=== PATIENT | male | born 1995 | race Caucasian/White ===

== ENCOUNTER 2016-10-25 19:54 | Emergency (ER) | payer OTHER ==
[2016-10-25] MEDS ORDERED: ASPIRIN 81 MG CHEW TAB PO ONE (20:12)
[2016-10-25] MEDS ORDERED: KETOROLAC TROMETHAMINE 30 MG/1ML VIAL IVP ONE (20:34)
[2016-10-25] MEDS ORDERED: LORazepam 2 MG/ML VIAL IVP ONE (20:38)
[2016-10-25 20:40] LABS: BASOPHILS % 0.3 (0.0-1.5); EOSINOPHILS % 0.9 % (0.0-6.8); LYMPHOCYTES # 1.7 # k/uL (0.6-4.0); MEAN CORPUSCULAR HEMOGLOBIN 29.7 pg (28.0-34.0); MONOCYTES # 0.5 # k/uL (0.0-0.9); MONOCYTES % 5.4 % (0.0-11.0); NEUTROPHILS # 7.5 # k/uL (1.4-7.7)
[2016-10-25 20:42] LABS: eGFR (African) > 60; eGFR (Non-African) > 60
--- NOTE | 2016-10-25 21:07 | ED Physician Documentation ---
General Adult - HISTORIAN Historian: patient - HPI Stated Complaint: chest pain Chief Complaint: General Adult Onset: days ago Timing: still present Severity: moderate Further Comments: yes (Pt is a 21 yo male with c/o chest pain which he says had gone on for more than a year. Pain is exacerbated by movement and coughing. Other household members have been ill with resp infections. Pt has hx heart murmur, anxiety. He smokes daily.) - ROS CONST: other (anxiety) EYES/ENT: none CVS/RESP: chest pain (worse with cough and movement), cough GI/: none MS/SKIN/LYMPH: none - PAST HX Past History: other (anxiety, heart murmur) Allergies/Adverse Reactions: Allergies Allergy/AdvReac Type Severity Reaction Status Date / Time No Known Allergies Allergy Verified 10/25/16 20:25 Home Medications: Ambulatory Orders Medication Instructions Recorded NK [NK] 10/28/12 - SOCIAL HX Smoking History: cigarettes - FAMILY HX Family History: No - VITAL SIGNS Vital Signs: Vital Signs Temp Pulse Resp BP Pulse Ox 98.3 F 94 H 15 138/81 99 10/25/16 19:54 10/25/16 20:42 10/25/16 19:54 10/25/16 19:54 10/25/16 20:42 - REVIEWED ASSESSMENTS Nursing Assessment Reviewed: Yes Vitals Reviewed: Yes Progress - Progress Progress: Toradol 30 mg IV Ativan 1 mg IV 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 Recommend contrast-enhanced computed tomography of the chest for further evaluation. Right upper lobe bronchitis or bronchopneumonia. CT chest: Transverse chest sections are obtained after 80 mL intravenous Omnipaque 350 revealing calcified granulomas in each hilum, pretracheal region, subcarinal region, the right lung, and the spleen. 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 Numerous small clustered nodules are identified in the anterior segment right upper lobe, likely inflammatory. Calcified and noncalcified clustered nodules are present in the right middle lobe. Paraesophageal calcified granulomas are noted in the caudal chest. There is no airspace infiltrate or pleural effusion. IMPRESSION: Numerous clustered nodules are present in the anterior segment right upper lobe, both calcified and noncalcified. This is likely related to granulomatous disease given extensive calcified granulomas in each hilum and throughout the mediastinum. A large calcified left hilar granuloma accounts for the radiographic abnormality. Rx Azithromycin 250 mg po qd x 5 days. f/u pcp or hematology. - EKG/XRAY/CT EKG: rhythm (Sinus arrhythmia; normal WV interval; normal axis.) ED Results Lab/Radiology - Lab Results Lab Results: Lab Results 10/25/16 10/25/16 10/25/16 20:24 20:23 20:23 WBC 10.00 K/ul K/ul (4.00-12.00) RBC 5.06 M/ul M/ul (3.90-5.20) Hgb 15.0 g/dL g/dL (12.0-18.0) Hct 42.7 % % (37.0-53.0) MCV 84.3 fl fl (80.0-100.0) MCH 29.7 pg pg (28.0-34.0) MCHC 35.2 g/dL g/dL (30.0-36.0) RDW 12.6 % % (11.3-14.3) Plt Count 240 K/mm3 K/mm3 (130-400) Neut % (Auto) 74.7 % % (39.0-79.0) Lymph % (Auto) 17.2 % % (16.0-50.0) Rowan % (Auto) 5.4 % % (0.0-11.0) Eos % (Auto) 0.9 % % (0.0-6.8) Baso % (Auto) 0.3 (0.0-1.5) Neut # 7.5 # k/uL # k/uL (1.4-7.7) Lymph # 1.7 # k/uL # k/uL (0.6-4.0) Rowan # 0.5 # k/uL # k/uL (0.0-0.9) Eos # 0.1 # k/uL # k/uL (0.0-0.6) Baso # 0.0 # k/uL # k/uL (0.0-0.5) Reactive Lymphs % 1.5 % % (0.0-5.0) Reactive Lymphs # 0.2 # k/uL # k/uL (0.0-0.8) D-Dimer 118 ng/mL ng/mL (6.0-682) Sodium 142 mmol/L mmol/L (136-145) Potassium 4.1 mmol/L mmol/L (3.5-5.0) Chloride 105 mmol/L mmol/L (98-110) Carbon Dioxide 34 mmol/L H mmol/L (20-32) BUN 11 mg/dL mg/dL (10-26) Creatinine 0.9 mg/dL mg/dL (0.4-1.5) Estimated Creat Clear 167 Est GFR ( Amer) > 60 (60 - ) Est GFR (Non-Af Amer) > 60 (60 - ) Glucose 92 mg/dL mg/dL (70-99) Calcium 9.8 mg/dL mg/dL (8.5-10.5) Total Bilirubin 0.9 mg/dL mg/dL (0.2-1.2) AST 14 U/L U/L (0-41) ALT 15 U/L U/L (0-45) Alkaline Phosphatase 63 U/L U/L (46-116) Creatine Kinase 78 U/L U/L (0-225) CK-MB (CK-2) 0.9 ng/mL ng/mL (0.0-5.6) Troponin I Pending Total Protein 7.6 g/dL g/dL (6.0-8.5) Albumin 4.7 g/dL g/dL (3.0-5.5) - Orders Orders: ED Orders Category Date Time Status Continuous EKG monitoring Q30M Care 10/25/16 20:12 Active Continuous Pulse Oximetry Q30M Care 10/25/16 20:[address] Saline Lock/IV NOW Care 10/25/16 20:12 Active CHEST 1 VIEW [RAD] Stat Exams 10/25/16 20:12 Taken CBC/PLATELET/DIFF Routine Lab 10/25/16 20:24 Completed CKMB Stat Lab 10/25/16 20:23 Results CMP Routine Lab 10/25/16 20:23 Completed CREATINE KINASE Routine Lab 10/25/16 20:23 Completed D DIMER Stat Lab 10/25/16 20:23 Results TROPONIN I (cTnI) Stat Lab 10/25/16 20:23 Results Aspirin Med 10/25/16 20:12 Discontinued 324 mg PO NOW ONE Ketorolac Tromethamine [Toradol] Med 10/25/16 20:34 Discontinued 30 mg IVP NOW ONE LORazepam [Ativan] Med 10/25/16 20:38 Discontinued 1 mg IVP NOW ONE Oxygen Daily Oxygen 10/25/16 20:15 Ordered EKG WITH COMPARISON Stat Ther 10/25/16 20:12 Ordered General Adult Physical Exam - PHYSICAL EXAM GENERAL APPEARANCE: mild distress EENT: eye inspection normal, pharynx normal NECK: normal inspection, supple RESPIRATORY: no resp distress, chest non-tender, breath sounds normal CVS: reg rate & rhythm, heart sounds normal ABDOMEN: soft, no organomegaly, normal bowel sounds BACK: normal inspection, no CVA tenderness SKIN: warm/dry, normal color EXTREMITIES: non-tender, normal range of motion NEURO: oriented X3, motor nml, sensation nml Discharge Clincal Impression: bronchitis, Granulomatous disease Referrals: Primary Doctor,No [Primary Care Provider] - 2 Days Home Medications: Ambulatory Orders NK [NK] 10/28/12 Condition: Stable Disposition: 01 HOME, SELF-CARE Decision to Admit: NO Decision Time: 23:05
[2016-10-25] MEDS ORDERED: AZITHROMYCIN 250 MG TABLET PO ONE (22:10)
[2016-10-25 23:30] VITALS: BP 153/91
--- NOTE | 2016-10-26 06:17 | Diagnostic Imaging Report ---
Report Submission Date: Oct 25, 2016 8:47:19 PM CDT Patient ~ Study Name: OLIVA CALIX ~ Date: Oct 25, 2016 8:28:52 PM CDT ~ Modality Type: CR Gender: M ~ Description: CHEST : 96 ~ Institution: [facility] Physician: SAMI BYERS ~ ~ ~ ~ Portable chest HISTORY: ~ Chest pain FINDINGS: ~ The left hilum is enlarged. ~The left lung is clear. ~Subsegmental right upper lobe bronchial wall thickening is observed. ~Heart size is normal. ~No pleural effusions are observed. ~An azygos fissure is present. IMPRESSION: ~ Left hilar enlargement of uncertain etiology. ~Recommend contrast-enhanced computed tomography of the chest for further evaluation. ~ Right upper lobe bronchitis or bronchopneumonia. ~ Electronically signed on Oct 25, 2016 8:47:19 PM CDT by: Jonathan THURSTON
--- NOTE | 2016-10-26 06:17 | Diagnostic Imaging Report ---
Report Submission Date: Oct 25, 2016 10:01:58 PM CDT Patient ~ Study Name: OLIVA CALIX ~ Date: Oct 25, 2016 9:35:23 PM CDT ~ Modality Type: CT\SR Gender: M ~ Description: CT CHEST W/ CONTRAST : 96 ~ Institution: [facility] Physician: SAMI BYERS ~ ~ ~ ~ Computed tomography of the chest with contrast HISTORY: ~ Right upper lobe infiltrate and left hilar enlargement on chest radiograph. ~ Chest pain for 2 weeks. FINDINGS: ~ Transverse chest sections are obtained after 80 mL intravenous Omnipaque 350 revealing calcified granulomas in each hilum, pretracheal region, subcarinal region, the right lung, and the spleen. 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 ~Numerous small clustered nodules are identified in the anterior segment right upper lobe, likely inflammatory. ~Calcified and noncalcified clustered nodules are present in the right middle lobe. ~ Paraesophageal calcified granulomas are noted in the caudal chest. ~There is no airspace infiltrate or pleural effusion. ~ IMPRESSION: ~ Numerous clustered nodules are present in the anterior segment right upper lobe , both calcified and noncalcified. ~This is likely related to granulomatous disease given extensive calcified granulomas in each hilum and throughout the mediastinum. ~A large calcified left hilar granuloma accounts for the radiographic abnormality. ~ Electronically signed on Oct 25, 2016 10:01:58 PM CDT by: Jonathan THURSTON
== END 2016-10-25 22:26 | disposition home or self-care (01) ==
LOC: ED 19:54
DX: J20.9 Acute bronchitis, unspecified (principal); D71 Functional disorders of polymorphonuclear neutrophils
CPT/HCPCS: 71010; 71260; 80053; 82550; 82553; 84484; 85025; 85379; 96374; 96375; 99283; 99284; J1885; J2060; S1016

== ENCOUNTER 2018-03-21 14:34 | Emergency (ER) | payer SELFPAY ==
--- NOTE | 2018-03-21 14:45 | ED Physician Documentation ---
General Adult - HISTORIAN Historian: patient - HPI Chief Complaint: General Adult Additional Information: Patient started to have some nause and vomiting on Tuesday. Lasted for about 36 hours. Is feeling fine now. Tried to go back to work but was told that he needed a work excuse Timing: better - ROS CONST: no problems. denies: fever, chills GI/: vomiting, nausea, diarrhea - PAST HX Past History: other (history of calicfied granulomas) Allergies/Adverse Reactions: Allergies Allergy/AdvReac Type Severity Reaction Status Date / Time No Known Allergies Allergy Verified 10/25/16 20:25 Home Medications: Ambulatory Orders Medication Instructions Recorded NK 10/28/12 - SOCIAL HX Smoking History: less than 1 pack/day (1/2 ppd) Alcohol Use: none Drug Use: marijuana - FAMILY HX Family History: No - VITAL SIGNS Vital Signs: Vital Signs Temp Pulse Resp BP Pulse Ox 153/91 10/25/16 23:27 - REVIEWED ASSESSMENTS Nursing Assessment Reviewed: Yes Vitals Reviewed: Yes General Adult Physical Exam - PHYSICAL EXAM GENERAL APPEARANCE: no distress EENT: pharynx normal NECK: normal inspection, thyroid normal RESPIRATORY: no resp distress, chest non-tender, breath sounds normal. No: wheezes, rales, rhonchi CVS: reg rate & rhythm, heart sounds normal, equal pulses, no murmur ABDOMEN: soft, no organomegaly, normal bowel sounds, no abdominal bruit, no distension, non-tender NEURO: oriented X3, mood/affect nml, cognition normal Discharge Clincal Impression: Viral gastroenteritis Referrals: Primary Doctor,No [Primary Care Provider] - 2 Days Additional Instructions: Drink a lot of fluids. Wash your hands frequently. If any problems to return to the ED. Condition: Stable Disposition: 01 HOME, SELF-CARE Decision to Admit: NO Date of Decison to Admit: 03/21/18 Decision Time: 14:51
[2018-03-21 14:48] VITALS: BP 133/73
== END 2018-03-21 15:00 | disposition home or self-care (01) ==
LOC: ED 14:34
DX: A08.4 Viral intestinal infection, unspecified (principal)
CPT/HCPCS: 99282

== ENCOUNTER 2018-04-11 17:06 | Emergency (ER) | payer SELFPAY ==
--- NOTE | 2018-04-11 17:29 | ED Physician Documentation ---
GI Bleed - HPI Stated Complaint: RLQ pain Chief Complaint: Abdominal Pain Additional Information: Patient presents to ED with a 2 day history of blood streaked stools and RLQ pain. He states the RLQ pain is 10/10, sharp stabbing. Today he states he has experienced extreme fatigue and chills. He denies nausea/vomiting/diarrhea. No previous surgeries. Onset: days ago (2) Timing: gradual onset, still present Severity: moderate - Associated Symptoms Description of Stools: other (bright red stools) Abdominal Pain: RLQ (6/10 sharp stabbing) Description of Rectal Bleed: blood streaks on stool Other Related Symptoms: denies: nausea - ROS CONST: chills SKIN/LYMPH: denies: swollen glands CVS/RESP: shortness of breath. denies: chest pain GI/: denies: rectal intercourse, problems urinating EYES/ENT: denies: problems with vision MS: none NEURO/PSYCH: denies: headache - PAST HX Past History: denies: bleeding disorder, diverticulitis, polyps, DVT, GI bleeding, hemorrhoids, peptic ulcer, rectal fistula, rectal abscess, PE, rectal fissure, other Other History: denies: cancer chemo, cancer radiation tx, cardiac disease, AMI, CHF, A-Fib, diabetes Type 1, diabetes Type 2, hepatitis, hypertension, liver, pancreas disease, HIV, other Surgeries/Procedures: none Allergies/Adverse Reactions: Allergies Allergy/AdvReac Type Severity Reaction Status Date / Time No Known Allergies Allergy Verified 04/11/18 17:28 Home Medications: Ambulatory Orders Medication Instructions Recorded Ciprofloxacin HCl [Cipro] 500 mg PO BID #28 tablet 04/11/18 metroNIDAZOLE [Flagyl] 500 mg PO Q8H #30 tablet 04/11/18 - SOCIAL HX Smoking History: cigarettes, less than 1 pack/day Drug Use: marijuana - FAMILY HX Family History: none - VITAL SIGNS Vital Signs: Vital Signs Temp Pulse Resp BP Pulse Ox 99.7 F H 112 H 17 145/85 96 04/11/18 17:06 04/11/18 17:06 04/11/18 17:06 04/11/18 17:06 04/11/18 17:06 Progress - Results/Orders Results/Orders: Occult blood stool - positive. UA negative Computed tomography abdomen pelvis with contrast History: Right lower quadrant pain, nausea, vomiting for 1 day Findings: Transverse abdomen and pelvis sections are obtained after 94 mL intravenous Omnipaque 350. Calcified granulomas are noted in the chest, liver, and spleen. A 4 cm long jejunojejunal intussusception is present just anterior to the spleen. There is mural thickening throughout the colon. The kidneys, pancreas, adrenals, great vessels, and mesenteric structures are unremarkable. Gallbladder diameter and wall thickness are normal. Bilateral L5 pars defects and minimal grade 1 L5-S1 spondylolisthesis are observed. Pelvic sections reveal mural thickening of the proximal sigmoid colon and liquid sigmoid stool. The appendix is normal. The prostate, seminal vesicles, and decompressed urinary bladder are unremarkable. Impression: 1. Near pancolitis with sparing of the distal sigmoid and rectum. 2. 4 cm long jejunojejunal intussusception. Most jejunal intussusceptions are transient. 3. Bilateral L5 pars defects and grade 1 L5-S1 spondylolisthesis. 4. Normal appendix. Electronically signed on Apr 11, 2018 6:21:21 PM CDT by: Jonathan Foy - Progress Progress: 17[address] Patient resting comfortably. Discussed CT results. Cipro and Flagyl ordered. ED Results Lab/Radiology - Lab Results Lab Results: Lab Results 04/11/18 04/11/18 04/11/18 17:15 17:15 17:15 WBC Comment 12.82 thou/uL H thou/uL (4.00-12.00) RBC 5.45 mil/uL mil/uL (3.80-5.80) Hemoglobin (Send Out) 16.0 g/dL g/dL (12.0-18.0) Hct (Send Out) 44.6 % % (37.0-53.0) MCV (Send Out) 81.8 fL fL (80.0-100.0) MCH 29.4 pg pg (28.0-34.0) MCHC (Send Out) 35.9 g/dL g/dL (30.0-36.0) RDW Coeff of Magda 12.7 % % (11.3-14.7) Plt Count 271 thou/uL thou/uL (130-400) Absolute Lymphs (auto) 0.90 thou/uL thou/uL (0.60-4.00) Absolute Monos (auto) 0.96 thou/uL H thou/uL (0.00-0.90) Absolute Basos (auto) 0.04 thou/uL thou/uL (0.00-0.50) Neutrophils % 85.2 % H % (39.0-79.0) Absolute Neutrophils 10.92 thou/uL H thou/uL (1.50-7.70) Lymphocytes 7.0 % L % (16.0-50.0) Monocytes 7.5 % % (0.0-11.0) Absolute Eosinophils 0.01 thou/uL thou/uL (0.00-0.60) Basophilia % 0.3 % % (0.0-1.5) Eosinophil Count 0.1 % % (0.0-6.8) PT 13.5 Seconds H Seconds (9.4-11.6) INR 1.29 H (0.9-1.2) Sodium 133 mmol/L L mmol/L (136-145) Potassium 3.6 mmol/L mmol/L (3.5-5.1) Chloride 103 mmol/L mmol/L (98-107) Carbon Dioxide 25 mmol/L mmol/L (22-30) BUN 10 mg/dL mg/dL (9-20) Creatinine 1.00 mg/dL mg/dL (0.66-1.25) Estimated Creat Clear 131 Est GFR ( Amer) > 60 (60 - ) Est GFR (Non-Af Amer) > 60 (60 - ) Glucose 78 mg/dL mg/dL (74-106) Calcium 9.2 mg/dL mg/dL (8.4-10.2) Total Bilirubin 0.9 mg/dL mg/dL (0.2-1.3) AST 15 U/L U/L (15-46) ALT 15 U/L U/L (13-69) Alkaline Phosphatase 85 U/L U/L (38-126) Total Protein 8.5 g/dL H g/dL (6.3-8.2) Albumin 4.5 g/dL g/dL (3.5-5.0) - Orders Orders: ED Orders Category Date Time Status Place IV Lock 1T Care 04/11/18 17:[address] ABD & PELVIS W/ CON Stat Exams 04/11/18 Completed CBC REF Stat Lab 04/11/18 17:15 Completed CMP Routine Lab 04/11/18 17:15 Completed PT-INR Routine Lab 04/11/18 17:15 Completed URINALYSIS Routine Lab 04/11/18 Ordered 0.9 % Sodium Chloride [Normal Saline] 1,000 ml Med 04/11/18 18:10 Active IV Q2H Ciprofloxacin/D5w [Cipro] 200 ml Med 04/11/18 19:08 Discontinued IV .STK-MED Ciprofloxacin/D5w [Cipro] 400 mg Med 04/11/18 19:02 Discontinued Premix Bag [Premix Fluid] 1 bag IV NOW metroNIDAZOLE [Flagyl] Med 04/11/18 19:02 Discontinued 500 mg PO NOW ONE Abdominal Pain Physical Exam - Physical Exam General Appearance: no acute distress EENT: eye inspection normal NECK: normal inspection RESPIRATORY: no resp distress, breath sounds normal CVS: reg rate & rhythm ABDOMEN: soft, normal bowel sounds, guarding. No: obturator sign, rebound RECTAL: deferred, other (patient refused) BACK: no CVA tenderness SKIN: warm/dry, normal color EXTREMITIES: no edema NEURO: oriented X3 Vital Signs: Vital Signs Temp Pulse Resp BP Pulse Ox 99.7 F H 112 H 17 145/85 96 04/11/18 17:06 04/11/18 17:06 04/11/18 17:06 04/11/18 17:06 04/11/18 17:06 Discharge Clincal Impression: Acute colitis Prescriptions: Ciprofloxacin HCl [Cipro] 500 mg PO BID #28 tablet metroNIDAZOLE [Flagyl] 500 mg PO Q8H #30 tablet Referrals: Primary Doctor,No [Primary Care Provider] - 2 Days Decision to Admit: NO Date of Decison to Admit: 04/11/18 Decision Time: 20:04
[2018-04-11] MEDS ORDERED: 0.9 % SODIUM CHLORIDE 1,000 ML IV ONE (18:10)
[2018-04-11 18:15] LABS: eGFR (Non-African) > 60
--- NOTE | 2018-04-11 18:23 | Diagnostic Imaging Report ---
SIOMARA MORA [facility] [id number] [facility] [address] [place], [place]. [address] Report Submission Date: Apr 11, 2018 6:21:21 PM CDT Patient Study Name: OLIVA CALIX Date: Apr 11, 2018 5:54:28 PM CDT Modality Type: CT\SR Gender: M Description: CT ABD PELVIS W/ CON : 96 Institution: [facility] Physician: SIOMARA MORA Computed tomography abdomen pelvis with contrast History: Right lower quadrant pain, nausea, vomiting for 1 day Findings: Transverse abdomen and pelvis sections are obtained after 94 mL intravenous Omnipaque 350. Calcified granulomas are noted in the chest, liver, and spleen. A 4 cm long jejunojejunal intussusception is present just anterior to the spleen. There is mural thickening throughout the colon. The kidneys, pancreas, adrenals, great vessels, and mesenteric structures are unremarkable. Gallbladder diameter and wall thickness are normal. Bilateral L5 pars defects and minimal grade 1 L5-S1 spondylolisthesis are observed. Pelvic sections reveal mural thickening of the proximal sigmoid colon and liquid sigmoid stool. The appendix is normal. The prostate, seminal vesicles, and decompressed urinary bladder are unremarkable. Impression: 1. Near pancolitis with sparing of the distal sigmoid and rectum. 2. 4 cm long jejunojejunal intussusception. Most jejunal intussusceptions are transient. 3. Bilateral L5 pars defects and grade 1 L5-S1 spondylolisthesis. 4. Normal appendix. Electronically signed on Apr 11, 2018 6:21:21 PM CDT by: Jonathan THURSTON
[2018-04-11] MEDS ORDERED: metroNIDAZOLE 500 MG TABLET PO ONE (19:02)
[2018-04-11] MEDS ORDERED: CIPROFLOXACIN/D5W 400 MG in PREMIX BAG 1 BAG IV ONE (19:02)
[2018-04-11] MEDS ORDERED: CIPROFLOXACIN/D5W 200 ML IV ONE (19:08)
[2018-04-11 20:01] LABS: BASO % 0.3 % (0.0-1.5); EOS % 0.1 % (0.0-6.8); MCH. 29.4 pg (28.0-34.0); MCV 81.8 fL (80.0-100.0); MONOCYTE % 7.5 % (0.0-11.0); MONOCYTE ABS # 0.96 thou/uL (0.00-0.90); PLATELET COUNT 271 thou/uL (130-400)
[2018-04-11] MEDS ORDERED: HYDROcodone /APAP 5/325 1 EACH TABLET PO ONE (20:32)
[2018-04-11 20:54] VITALS: BP 138/81
[2018-04-12 06:10] LABS: APPEARANCE,URINE CLOUDY (CLEAR)
[2018-04-12 06:11] LABS: OCCULT BLOOD,URINE TRACE-INTACT (NEGATIVE); UROBILINOGEN URINE 0.2 Eu (0.2-1.0)
[2018-04-12 06:12] LABS: COLOR,URINE ORANGE (YELLOW)
== END 2018-04-11 20:53 | disposition home or self-care (01) ==
LOC: ED 17:06
DX: K52.9 Noninfective gastroenteritis and colitis, unspecified (principal)
CPT/HCPCS: 74177; 80053; 81002; 85025; 85610; A9270; J0744; J7030; 96365; 96366; 96368; 99284; Q9967; S1016